=== PATIENT | female | born 2005 | race Caucasian/White ===

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

== ENCOUNTER 2023-03-23 15:53 | Emergency (ER) | payer MEDICAID | END 2023-03-23 17:33 | disposition home or self-care (01) | LOC: MW.ED 15:53 | DX: S67.190A Crushing injury of right index finger, initial encounter (principal); S67.192A Crushing injury of right middle finger, initial encounter; V86.95XA Unspecified occupant of 3- or 4- wheeled all-terrain vehicle (ATV) injured in nontraffic accident, initial encounter | CPT/HCPCS: 73130-26-RT; 73130-RT; 99282; 99283 ==

== ENCOUNTER 2024-01-03 03:45 | Inpatient (IN) | payer MEDICAID ==
[2024-01-03] MEDS ORDERED: Methylergonovine 0.2 MG/1 ML Amp IM PRN (04:29)
[2024-01-03] MEDS ORDERED: Lidocaine 1% 50 ML MDV INJECT PRN (04:29)
[2024-01-03] MEDS ORDERED: Carboprost Tromethamine 250 MCG/1 mL Vial IM PRN (04:29)
[2024-01-03] MEDS ORDERED: Misoprostol 200 MCG Tab PO PRN (04:29)
[2024-01-03] MEDS ORDERED: Tranexamic Acid IN NACL,ISO-OS 1,000 MG in Premix Bag 1 BAG IV PRN (04:29)
[2024-01-03] MEDS ORDERED: Sodium Chloride 0.9% 10 ML Syringe FLUSH PRN (04:29)
[2024-01-03] MEDS ORDERED: Nalbuphine 10 MG/0.5 ML Syringe IVPUSH PRN (04:29)
[2024-01-03] MEDS ORDERED: Sodium Chloride 0.9% 2.5 ML Syringe FLUSH PRN (04:29)
[2024-01-03] MEDS ORDERED: Sodium Chloride 0.9% 20 ML SDV IV PRN (04:29)
[2024-01-03] MEDS ORDERED: Water For Irrigation,Sterile 1,000 ML Container IRR PRN (04:29)
[2024-01-03] MEDS ORDERED: Oxytocin/0.9 % Sodium Chloride 30 UNIT/500 ML BAG IV SCH (04:30)
[2024-01-03] MEDS: Lactated Ringers 1,000 ML IV SCH (04:51)
[2024-01-03 04:56] LABS: HEMOGLOBIN 11.7 g/dL (12.0-16.0); MEAN CORPUSCULAR HEMOGLOBIN 28.3 pg (28.0-32.0); MEAN CORPUSCULAR HGB CONC 33.4 g/dL (32.0-36.0); MEAN CORPUSCULAR VOLUME 84.5 fL (83.0-99.0); PLATELET COUNT,PLT 250 K/uL (150-400); RED BLOOD CELL COUNT 4.14 M/uL (4.10-5.30); WHITE BLOOD CELL COUNT,WBC 10.91 K/uL (3.9-11.3)
[2024-01-03] MEDS: Ondansetron 4 MG/2 ML SDV IVPUSH PRN (04:58)
[2024-01-03] MEDS ORDERED: Bupivacaine 0.5% 10 ML SDV ONE (05:03)
[2024-01-03] MEDS ORDERED: Phenylephrine HCl 0.5 MG/5 ML AMP ONE (05:03)
[2024-01-03] MEDS ORDERED: Ropivacaine HCl/PF 200 ML ONE (05:04)
[2024-01-03] MEDS ORDERED: ePHEDrine 50 MG/ML SDV IVPUSH PRN ×2 (05:24)
[2024-01-03] MEDS ORDERED: Phenylephrine HCl 0.5 MG/5 ML AMP IVPUSH PRN (05:24)
[2024-01-03] MEDS: Ropivacaine HCl/PF 400 MG in Premix Bag 1 BAG EPIDUR SCH (05:43)
[2024-01-03] MEDS ORDERED: Lanolin 100% Cream 7 GM Tube TOP PRN (06:58)
[2024-01-03] MEDS ORDERED: diphenhydrAMINE 50 MG Cap PO PRN (06:58)
[2024-01-03] MEDS ORDERED: Acetaminophen 500 MG Tab PO PRN (06:58)
[2024-01-03] MEDS: ceFAZolin 2 GM in Sodium Chloride 0.9% 50 ML IV ONE (07:47)
[2024-01-03] MEDS: Oxytocin/0.9 % Sodium Chloride 30 UNIT/500 ML BAG IV SCH (08:10)
[2024-01-03] MEDS: diphenhydrAMINE 50 MG/ML SDV IVPUSH ONE (10:38)
[2024-01-03] MEDS: Benzocaine/Menthol 20%-0.5% Spray 78 GM Cannister TOP PRN (14:00)
[2024-01-03] MEDS: Witch Hazel Medicated Pads 40/Jar TOP PRN (14:01)
[2024-01-03] MEDS: Ibuprofen 800 MG Tab PO PRN (14:02)
[2024-01-03] MEDS: Docusate Sodium 100 MG Cap PO PRN (20:51)
[2024-01-04 06:47] LABS: HEMATOCRIT 31.7 % (37.0-47.0); HEMOGLOBIN 10.2 g/dL (12.0-16.0); MEAN CORPUSCULAR HEMOGLOBIN 27.8 pg (28.0-32.0); MEAN CORPUSCULAR HGB CONC 32.2 g/dL (32.0-36.0); MEAN CORPUSCULAR VOLUME 86.4 fL (83.0-99.0); PLATELET COUNT,PLT 194 K/uL (150-400); RED BLOOD CELL COUNT 3.67 M/uL (4.10-5.30); WHITE BLOOD CELL COUNT,WBC 8.37 K/uL (3.9-11.3)
== END 2024-01-04 13:20 | disposition home or self-care (01) | DRG 807 ==
LOC: MW.OBCHECK 03:45 → MW.OB 03:46 → MW.OBCHECK 11:46 → MW.OB 11:47 → OBSVTOIN 11:47 → MW.OB 16:08
PROVIDERS: ADMIT Obstetrics & Gynecology; ATTEND Obstetrics & Gynecology
PROC: 10E0XZZ Delivery of Products of Conception, External Approach (ICD-10-PCS; principal; 2024-01-03)
PROC: 10907ZC Drainage of Amniotic Fluid, Therapeutic from Products of Conception, Via Natural or Artificial Opening (ICD-10-PCS; 2024-01-03)
PROC: 3E0R3BZ Introduction of Anesthetic Agent into Spinal Canal, Percutaneous Approach (ICD-10-PCS; 2024-01-03)
PROC: 00HU33Z Insertion of Infusion Device into Spinal Canal, Percutaneous Approach (ICD-10-PCS; 2024-01-03)
DX: O99.892 Other specified diseases and conditions complicating childbirth (principal); Z37.0 Single live birth; M41.9 Scoliosis, unspecified; M25.559 Pain in unspecified hip; Z3A.37 37 weeks gestation of pregnancy
CPT/HCPCS: 36415; 51702; 59025; 59409; 85027; 86592; 86850; 86900; 86901; A9270-GY; J0665; J0690; J1200; J2371; J2405; J2590; J2795; J3490; J7120

== ENCOUNTER 2024-11-22 09:31 | Day surgery (SDC) | payer MEDICAID ==
[2024-11-22 10:10] LABS: BASOPHILS PERCENT AUTO 0.4 % (0.0-1.0); EOSINOPHILS PERCENT AUTO 1.1 % (0.0-6.0); HEMATOCRIT 36.9 % (37.0-47.0); HEMOGLOBIN 12.5 g/dL (12.0-16.0); IMMATURE GRAN PERCENT AUTO 0.4 % (0.0-0.4); LYMPHOCYTES ABSOLUTE AUTO 3.98 K/uL (1.00-4.80); LYMPHOCYTES PERCENT AUTO 24.2 % (24.0-44.0); MEAN CORPUSCULAR HEMOGLOBIN 30.7 pg (28.0-32.0); MEAN CORPUSCULAR HGB CONC 33.9 g/dL (32.0-36.0); MEAN CORPUSCULAR VOLUME 90.7 fL (83.0-99.0); MEAN PLATELET VOLUME 9.5 fL (9.4-12.3); MONOCYTES PERCENT AUTO 6.9 % (0.0-8.0); NEUTROPHILS ABSOLUTE AUTO 10.99 K/uL (1.80-7.70); PLATELET COUNT,PLT 381 K/uL (150-400); RED BLOOD CELL COUNT 4.07 M/uL (4.10-5.30); WHITE BLOOD CELL COUNT,WBC 16.42 K/uL (3.9-11.3)
[2024-11-22 10:11] LABS: BASOPHILS ABSOLUTE AUTO 0.06 K/uL (0.00-0.20); EOSINOPHILS ABSOLUTE AUTO 0.18 K/uL (0.00-0.45); IMMATURE GRAN ABSOLUTE AUTO 0.07 K/uL (0.00-0.05); MONOCYTES ABSOLUTE AUTO 1.14 K/uL (0.00-0.80)
[2024-11-22] MEDS: Ondansetron 4 MG/2 ML SDV IVPUSH ONE (10:19)
[2024-11-22] MEDS: Sodium Chloride 0.9% 1,000 ML IV ONE ×3 (10:20→12:40)
[2024-11-22] MEDS: Piperacillin/Tazobactam 4.5 GM in Sodium Chloride 0.9% 100 ML IV ONE (10:20)
[2024-11-22] MEDS: Morphine 2 MG/ML SYRINGE IVPUSH ONE (10:20)
[2024-11-22 10:31] LABS: INR 1.01 (0.86-1.11); PTT,PARTIAL THROMBOPLSTIN TIME 24.1 SEC (23.9-30.7)
[2024-11-22 10:37] LABS: A/G RATIO 1.1 (0.9-1.6); ALBUMIN 3.5 g/dL (3.4-5.0); BILIRUBIN DIRECT 0.1 mg/dL (0.0-0.5); BILIRUBIN INDIRECT 0.2; BILIRUBIN TOTAL 0.3 mg/dL (0.2-1.0); CALCIUM 8.8 mg/dL (8.5-10.1); CARBON DIOXIDE,CO2 23.1 mmol/L (21.0-32.0); CREATININE 0.9 mg/dL (0.6-1.0); EST CRCL DRUG DOSING (CG) 88.97 mL/min; POTASSIUM,K 4.4 mmol/L (3.5-5.1); PROTEIN TOTAL,TP 6.6 g/dL (6.4-8.2)
[2024-11-22] MEDS ORDERED: VANCOmycin 2 GM/400 ML 400 ML IV ONE (10:45)
[2024-11-22 11:51] LABS: APPEARANCE,URINE CLEAR; BILIRUBIN,URINE NEGATIVE (NEGATIVE); COLOR,URINE YELLOW; GLUCOSE,URINE NEGATIVE (NEGATIVE); KETONES,URINE NEGATIVE (NEGATIVE); LEUKOCYTE ESTERASE,URINE NEGATIVE (NEGATIVE); NITRITE,URINE NEGATIVE (NEGATIVE); OCCULT BLOOD,URINE NEGATIVE (NEGATIVE); PROTEIN,URINE 30 mg/dL (NEGATIVE); UROBILINOGEN,URINE 0.2 EU/dL (<2.0)
[2024-11-22 12:00] LABS: AMORPHOUS SEDIMENT,URINE LIGHT (NEGATIVE); AMPHETAMINES SCREEN, URINE NEGATIVE (CUTOFF=500); BACTERIA,URINE RARE (NEGATIVE); BARBITURATE SCREEN,URINE NEGATIVE (CUTOFF=200); BENZODIAZEPINES SCREEN,URINE NEGATIVE (CUTOFF=150); BUPRENORPHINE SCREEN,URINE NEGATIVE (CUTOFF=10); EPITHELIAL CELLS,URINE RARE (NONE-FEW); HYALINE CASTS,URINE 0-1 (0-2/LPF); METHADONE SCREEN, URINE NEGATIVE (CUTOFF=200); METHAMPHETAMINES SCREEN, URINE NEGATIVE (CUTOFF=500); MUCUS,URINE LIGHT (NONE-MOD); OXYCODONE SCREEN,URINE NEGATIVE (CUT0FF=100); PCP SCREEN,URINE NEGATIVE (CUTOFF=25); RBC,URINE 0-1 (0-2/HPF); THC SCREEN,URINE 20 NG/ML PRESUMPTIVE POSITIVE (CUTOFF=50); WBC,URINE 0-1 (0-5/HPF)
[2024-11-22] MEDS ORDERED: fentaNYL 250 MCG/5 ML SDV ONE (12:56)
[2024-11-22] MEDS ORDERED: propofoL 500 MG/50 ML 50 ML ONE ×2 (12:56→13:17)
[2024-11-22] MEDS ORDERED: Ketamine HCL/NACL, ISO-OSM 50 MG/5 ML Syringe ONE (12:57)
[2024-11-22] MEDS ORDERED: Lidocaine 1% 20 ML MDV ONE (13:08)
[2024-11-22] MEDS ORDERED: Ropivacaine 0.5% 5 MG/ML 30 ML SDV ONE (13:11)
[2024-11-22] MEDS ORDERED: dexmedeTOMIDine HCl 200 MCG/2 ML SDV ONE (13:31)
[2024-11-22] MEDS ORDERED: Morphine 10 MG/ML SDV ONE (13:32)
[2024-11-22] MEDS ORDERED: Naloxone 0.4 MG/ML SDV IVPUSH PRN (13:41)
[2024-11-22] MEDS ORDERED: Phenylephrine HCl In 0.9% NaCl 1 MG/10 ML Syringe IVPUSH PRN (13:41)
[2024-11-22] MEDS ORDERED: Metoclopramide 10 MG/2 ML SDV IVPUSH PRN (13:41)
[2024-11-22] MEDS ORDERED: HYDROmorphone 1 MG/ML Syringe IVPUSH PRN (13:41)
[2024-11-22] MEDS ORDERED: Ondansetron 4 MG/2 ML SDV IVPUSH PRN ×2 (13:41→15:11)
[2024-11-22] MEDS ORDERED: Morphine 2 MG/ML SYRINGE IVPUSH PRN (13:41)
[2024-11-22] MEDS ORDERED: Albuterol 0.083% 2.5 MG/3 ML Neb Soln NEB PRN (13:41)
[2024-11-22] MEDS ORDERED: fentaNYL 50 MCG/ML SDV IVPUSH PRN (13:41)
[2024-11-22 14:11] LABS: HEMATOCRIT 24.1 % (37.0-47.0); HEMOGLOBIN 8.4 g/dL (12.0-16.0); MEAN CORPUSCULAR HEMOGLOBIN 31.6 pg (28.0-32.0); MEAN CORPUSCULAR HGB CONC 34.9 g/dL (32.0-36.0); MEAN CORPUSCULAR VOLUME 90.6 fL (83.0-99.0); MEAN PLATELET VOLUME 9.6 fL (9.4-12.3); PLATELET COUNT,PLT 232 K/uL (150-400); RED BLOOD CELL COUNT 2.66 M/uL (4.10-5.30); WHITE BLOOD CELL COUNT,WBC 14.32 K/uL (3.9-11.3)
[2024-11-22] MEDS ORDERED: Ondansetron 4 MG/2 ML SDV ONE (14:14)
[2024-11-22] MEDS ORDERED: Sugammadex Sodium 200 MG/2 ML VIAL IV ONE (14:14)
[2024-11-22] MEDS ORDERED: Acetaminophen/oxyCODONE 325-5 MG Tab PO PRN ×2 (15:11)
[2024-11-22] MEDS ORDERED: Morphine 4 MG/ML Syringe IVPUSH PRN (15:11)
[2024-11-22] MEDS ORDERED: Ketorolac 30 MG/ML SDV IVPUSH PRN (15:11)
[2024-11-22] MEDS ORDERED: Promethazine 25 MG/ML SDV IM PRN (15:11)
[2024-11-22] MEDS: Ketorolac 30 MG/ML SDV IVPUSH ONE (16:23)
[2024-11-22 18:40] LABS: BASOPHILS ABSOLUTE AUTO 0.02 K/uL (0.00-0.20); BASOPHILS PERCENT AUTO 0.1 % (0.0-1.0); EOSINOPHILS ABSOLUTE AUTO 0.02 K/uL (0.00-0.45); EOSINOPHILS PERCENT AUTO 0.1 % (0.0-6.0); HEMATOCRIT 27.2 % (37.0-47.0); HEMOGLOBIN 9.3 g/dL (12.0-16.0); IMMATURE GRAN ABSOLUTE AUTO 0.02 K/uL (0.00-0.05); IMMATURE GRAN PERCENT AUTO 0.1 % (0.0-0.4); LYMPHOCYTES ABSOLUTE AUTO 1.73 K/uL (1.00-4.80); LYMPHOCYTES PERCENT AUTO 12.7 % (24.0-44.0); MEAN CORPUSCULAR HEMOGLOBIN 31.1 pg (28.0-32.0); MEAN CORPUSCULAR HGB CONC 34.2 g/dL (32.0-36.0); MEAN PLATELET VOLUME 9.3 fL (9.4-12.3); MONOCYTES ABSOLUTE AUTO 0.58 K/uL (0.00-0.80); MONOCYTES PERCENT AUTO 4.3 % (0.0-8.0); NEUTROPHILS ABSOLUTE AUTO 11.26 K/uL (1.80-7.70); NEUTROPHILS PERCENT AUTO 82.7 % (41.0-71.0); PLATELET COUNT,PLT 259 K/uL (150-400); RED BLOOD CELL COUNT 2.99 M/uL (4.10-5.30); WHITE BLOOD CELL COUNT,WBC 13.63 K/uL (3.9-11.3)
[2024-11-22] MEDS: Acetaminophen/HYDROcodone 325-5 MG Tab PO ONE (20:10)
== END 2024-11-22 22:14 | disposition home or self-care (01) ==
LOC: MW.ED 09:31 → MW.SDS 13:01 → MW.MS 16:05 → MW.SDS 22:14
PROVIDERS: ATTEND Obstetrics & Gynecology Gynecology
DX: O00.101 Right tubal pregnancy without intrauterine pregnancy (principal); J45.909 Unspecified asthma, uncomplicated
CPT/HCPCS: 36415; 49322; 58301; 59151; 76830; 80048; 80076; 80305; 81001; 82947; 83605; 83690; 84484; 84702; 84703; 85025; 85027; 85610; 85730; 86850; 86900; 86901; 87040; 87428; 93005; 96365; 96375; 99285; A9270; C1729; J0131; J1885; J2272; J2405; J2543; J2704; J2795; J3010; J3490; J7030; 00840; 64488; 93010; 99100

== ENCOUNTER 2025-05-27 12:49 | Emergency (ER) | payer MEDICAID ==
[2025-05-27] MEDS: Diphtheria,Pertussis(Acell),Tetanus Vaccine 0.5 ML Syringe IM ONE (13:30)
== END 2025-05-27 14:38 | disposition home or self-care (01) ==
LOC: MW.ED 12:49
DX: S92.512A Displaced fracture of proximal phalanx of left lesser toe(s), initial encounter for closed fracture (principal); W22.8XXA Striking against or struck by other objects, initial encounter; Y93.89 Activity, other specified
CPT/HCPCS: 12001; 73660-26-LT; 73660-LT; 90471; 90715; 99283-25